=== PATIENT | female | born 1985 | race Caucasian/White ===

== ENCOUNTER 2017-06-22 18:59 | Outpatient (CLI) | payer OTHER ==
[2017-06-22 19:19] VITALS: BP 116/66
[2017-06-22] MEDS ORDERED: PRENATAL VITAM1 EA11 PO (19:35)
[2017-06-22] MEDS ORDERED: IRON325 M1 PO (19:35)
== END 2017-06-22 21:40 | disposition home or self-care (01) ==
LOC: LDRP-OP 18:59 → 2WEST 19:00 → LDRP-OP 10-24 11:51
DX: O23.599 Infection of other part of genital tract in pregnancy, unspecified trimester (principal); B37.3 Candidiasis of vulva and vagina; Z3A.00 Weeks of gestation of pregnancy not specified
CPT/HCPCS: 59025; G0378

== ENCOUNTER 2017-10-05 07:01 | Inpatient (IN) | payer OTHER ==
[~2017-10-05] VITALS: Ht 167.6 cm; Wt 81.8 kg
[2017-10-05] VITALS (17 sets, daily range): BP systolic 99–133; BP diastolic 55–76
[~2017-10-05 07:01] MED LIST: IRON325 M1 PO; PRENATAL VITAM1 EA11 PO
[2017-10-05 10:43] LABS: EOSINOPHIL COUNT 0.1 K/uL (0-0.3); HEMATOCRIT 32.3 % (36.0-46.0); IMMATURE GRANULOCYTE (%) 0.9 % (0.0-0.7); IMMATURE GRANULOCYTE COUNT 0.1 K/uL; LYMPHOCYTE COUNT 1.2 K/uL (1.0-2.8); MCH 29.2 PG (29.0-34.0); MCHC 33.7 G/DL (30.0-36.0); MCV 86.6 FL (83-99); MEAN PLAT.VOLUME 11.9 uM^3 (9.5-12.4); MONOCYTE (%) 8.8 % (3-12); MONOCYTE COUNT 0.9 K/uL (0-0.8); NEUTROPHIL (%) 77.7 % (45-76); PLATELET COUNT 164 K/uL (156-360); RBC DIS.WIDTH-CV 14.9 % (11.8-14.6); RBC DIS.WIDTH-SD 47.4 % (39-53); RED BLOOD COUNT 3.73 M/uL (3.80-5.20); WHITE BLOOD COUNT 10.3 K/uL (4.1-10.2)
[2017-10-06] VITALS (45 sets, daily range): BP systolic 101–146; BP diastolic 55–83
[2017-10-07] VITALS (8 sets, daily range): BP systolic 105–133; BP diastolic 55–67
[2017-10-07] MEDS ORDERED: IBUPROFEN800 MG PO
[2017-10-08 09:00] VITALS: BP 126/76
== END 2017-10-08 12:14 | disposition home or self-care (01) | DRG 775 ==
LOC: LDRP-OP → 2WEST 07:02 → LDRP-OP 07:44 → 2WEST 21:06 → LDRP-OP 10-24 22:11
PROVIDERS: Advanced Practice Midwife
PROC: 3E0P7VZ Introduction of Hormone into Female Reproductive, Via Natural or Artificial Opening (ICD-10-PCS; principal; 2017-10-05)
PROC: 3E033VJ Introduction of Other Hormone into Peripheral Vein, Percutaneous Approach (ICD-10-PCS; principal; 2017-10-05)
PROC: 3E0S3BZ Introduction of Anesthetic Agent into Epidural Space, Percutaneous Approach (ICD-10-PCS; 2017-10-06)
PROC: 0DQR0ZZ Repair Anal Sphincter, Open Approach (ICD-10-PCS; 2017-10-06)
PROC: 10907ZC Drainage of Amniotic Fluid, Therapeutic from Products of Conception, Via Natural or Artificial Opening (ICD-10-PCS; 2017-10-06)
PROC: 10E0XZZ Delivery of Products of Conception, External Approach (ICD-10-PCS; 2017-10-06)
PROC: 00HU33Z Insertion of Infusion Device into Spinal Canal, Percutaneous Approach (ICD-10-PCS; 2017-10-06)
DX: O70.20 Third degree perineal laceration during delivery, unspecified (principal); O48.0 Post-term pregnancy; O76 Abnormality in fetal heart rate and rhythm complicating labor and delivery; O69.81X0 Labor and delivery complicated by cord around neck, without compression, not applicable or unspecified; Z37.0 Single live birth; Z3A.41 41 weeks gestation of pregnancy
CPT/HCPCS: 85025; C1755; J0595; J3010; J7120; S0020